=== PATIENT | female | born 1980 | race Caucasian/White ===

== ENCOUNTER 2019-12-24 14:51 | Emergency (ER) | payer MEDICARE, OTHER ==
[~2019-12-24] VITALS: Ht 1706.9 cm; Wt 59.0 kg
[2019-12-24] MEDS ORDERED: HALOPERIDOL LACTATE 5 MG/1 ML VIAL ONE (15:11)
[2019-12-24] MEDS ORDERED: LORAZEPAM 2 MG/1 ML VIAL ONE (15:11)
[2019-12-24] MEDS ORDERED: diphenhydrAMINE 50 MG/1 ML VIAL ONE (15:12)
[2019-12-24] MEDS ORDERED: LORAZEPAM 2 MG/1 ML VIAL IV ONE (15:15)
[2019-12-24] MEDS ORDERED: HALOPERIDOL LACTATE 5 MG/1 ML VIAL IM ONE (15:15)
[2019-12-24] MEDS ORDERED: diphenhydrAMINE 50 MG/1 ML VIAL IV ONE (15:15)
--- NOTE | 2019-12-24 15:30 | NUR ---
PT IS IN ROOM #2B. DR GOMEZ EVALUATED THE PT.
[2019-12-24 15:31] LABS: BASOPHILS # (AUTO) 0.1 K/uL (0.0-8.0); BASOPHILS % (AUTO) 0.7 % (0.0-2.0); HEMATOCRIT 34.4 % (31.2-41.9); LYMPHOCYTES # (AUTO) 1.5 K/uL (20.0-40.0); LYMPHOCYTES % (AUTO) 12.7 % (20.5-51.5); MEAN CORPUSCULAR HEMOGLOBIN 28.3 uug (24.7-32.8); MEAN CORPUSCULAR HGB CONC 32 g/dL (32.3-35.6); MEAN CORPUSCULAR VOLUME 88.1 fL (75.5-95.3); MONOCYTES # (AUTO) 1.4 K/uL (2.0-10.0); NEUTROPHILS # (AUTO) 8.7 K/uL (1.8-8.9); NEUTROPHILS % (AUTO) 74.6 % (38.5-71.5); PLATELET COUNT (AUTO) 238 K/uL (179-408); WHITE BLOOD COUNT (AUTO) 11.7 K/uL (3.8-11.8)
[2019-12-24 15:38] LABS: CARBON DIOXIDE 17 mmol/L (21-32); CHLORIDE 103 mmol/L (98-107); CREATININE 2.1 mg/dL (0.6-1.3); GLUCOSE 105 mg/dL (74-106); POTASSIUM 4.4 mmol/L (3.5-5.1); UREA NITROGEN, BLOOD 32 mg/dL (7-18)
[2019-12-24 15:45] LABS: ETHANOL < 3 MG/DL (0-0)
[2019-12-24 15:51] LABS: ALANINE AMINOTRANSFERASE 7 U/L (14-59); ALKALINE PHOSPHATASE 48 U/L (50-136); ASPARTATE AMINOTRANSFERASE 21 U/L (15-37); BILIRUBIN,DIRECT 0.1 mg/dL (0.0-0.2); BILIRUBIN,TOTAL 0.5 mg/dL (0.2-1.0)
[2019-12-24 15:54] LABS: ACETAMINOPHEN < 2.0 ug/mL (10-30)
[2019-12-24] MEDS ORDERED: IV NORMAL SALINE 1000 ML BAG IV ONE (16:00)
[2019-12-24 16:06] LABS: *BILIRUBIN,URIN NEGATIVE (NEGATIVE); *BLOOD, URINE 2+ (NEGATIVE); *CLARITY,URINE CLOUDY (CLEAR); *COLOR,URINE YELLOW (YELLOW); *KETONES,URINE NEGATIVE (NEGATIVE); *UROBILINOGEN,URINE 0.2 E.U./dl (NORMAL); LEUKOCYTE ESTERASE ,URINE NEGATIVE (NEGATIVE); NITRITE, URINE NEGATIVE (NEGATIVE); PH,URINE 6.5 (5.0-8.0); UGLUCOSE NEGATIVE (NEGATIVE)
[2019-12-24 16:09] LABS: *URINE HCG, QUAL NEGATIVE (NEGATIVE)
[2019-12-24 16:18] LABS: *AMPHETAMINE, URINE POSITIVE (NEGATIVE); *BARBITURATE, URINE NEGATIVE (NEGATIVE); *CANNABINOID, URINE NEGATIVE (NEGATIVE); *COCCAINE, URINE NEGATIVE (NEGATIVE); *OPIATE, URINE NEGATIVE (NEGATIVE); *PHENCYCLIDINE SCREEN,URINE NEGATIVE (NEGATIVE)
[2019-12-24 17:19] LABS: BACTERIA,URINE MANY /HPF (NONE SEEN); SQUAMOUS EPITHELIAL CELL,UR MANY /HPF (NONE SEEN)
[2019-12-24 17:20] LABS: MUCUS,URINE FEW /LPF (0-FEW)
[2019-12-24 17:51] LABS: CREATININE 1.5 mg/dL (0.6-1.3); POTASSIUM 3.6 mmol/L (3.5-5.1)
--- NOTE | 2019-12-24 17:55 | NUR ---
PT IS RESTING IN BED COMFORTABLY. NO S/S OF DISTRESS AT THIS TIME. CONTINUE TO MONITOR THE PT.
--- NOTE | 2019-12-24 19:20 | NUR ---
PATIENT A/OX3. MEDICALLY CLEARED BY DR COLEMAN. SPOKE TO KAVON WALDRON FROM [facility] WHO WILL EVAL PATIENT. ETA 1HR.
[2019-12-24] MEDS ORDERED: CIPROFLOXACIN HCL 250 MG TABLET PO ONE (19:30)
[2019-12-24] MEDS ORDERED: CIPROFLOXACIN HCL 250 MG TABLET ONE (19:32)
--- NOTE | 2019-12-24 20:45 | NUR ---
PATIENT TOLERATED MEAL PROVIDED. ABLE TO AMBULATE WITH STEADY GAIT. A/OX3.
--- NOTE | 2019-12-24 21:22 | NUR ---
AUGUSTO FROM [facility] HERE TO EVAL PATIENT.
--- NOTE | 2019-12-24 21:41 | NUR ---
IV removed. Catheter intact and site benign. Pressure and 4x4 gauze applied to site. No bleeding noted.
--- NOTE | 2019-12-24 21:44 | NUR ---
[place]O SPOKE TO ANOOP STAFF MEMBER FROM [facility] THAT PATIENT WILL BE RETURNING VIA [facility]AX[facility].
[2019-12-24 22:26] VITALS: BP 107/66
--- NOTE | 2019-12-24 22:26 | NUR ---
Patient discharged to home in stable condition WITH [facility]AXI TAKING PATIENT HOME. Written and verbal after care instructions given. Patient verbalizes understanding of instructions. Stressed follow up or return to ER for worsening s/s.
== END 2019-12-24 22:27 ==
LOC: EDBD 14:52 → ER 14:52
DX: F23 Brief psychotic disorder (principal); N28.9 Disorder of kidney and ureter, unspecified; E87.2 Acidosis; N39.0 Urinary tract infection, site not specified
CPT/HCPCS: 36415; 80048 ×2; 80076; 80307 ×2; 80329; 81001; 84703; 85025; 87086; 87426; 96361; 96372; 96374; 96375; 99285; G0480; J1200; J1630; J2060; A4663; C1758